=== PATIENT | female | born 1940 | race Caucasian/White ===

== ENCOUNTER 2016-10-31 11:47 | Observation (INO) | payer OTHER ==
--- NOTE | 2016-10-31 11:56 | PDOC ---
Attending Attestation - Resident Resident Name: Eric Russell - ED Attending Attestation I have performed the following: I have examined & evaluated the patient, The case was reviewed & discussed with the resident, I agree w/resident's findings & plan, Exceptions are as noted - HPI HPI: 10/31/16 12:02 The patient is a 76 year old female with a significant past medical history of hypertension who presents to the emergency department complaining of left jaw pain. It began Wednesday. She saw a physician at Urgent Care, was diagnosed with "TMJ." She was prescribed extra-strength Tylenol which has helped, though not completely. She pain is sharp, worsened with jaw activity. The daughter states that the left side of her jaw looks slightly swollen. She denies headache, visual changes. She denies fever, chills but the daughter states that she felt hot last night ( daughter in RN). She denies chest pain. 10/31/16 12:18 10/31/16 12:28 - Physicial Exam PE: 10/31/16 12:02 Vitals noted She is well appearing There is tenderness to palpation at the left TMJ There is very minimal skin erythema and warmth over trhe TMJ There is very minimal swelling at the area No forehead tenderness 10/31/16 12:20 10/31/16 12:29 10/31/16 15:10 EKG: NSR with occasional PACs, LAD, LAFB, no acute ischemic changes - Medical Decision Making 10/31/16 12:30 She is well appearing and in no acute distress Will obtain labs including CBC, CRP, ESR 10/31/16 13:[address] soft tissues neck with IV contrast to rule our abscess 10/31/16 14:27 CT preliminary reading: Parotitis Clinical impression: Parotitis Hyponatremia Will place on observation for further treatment Case discussed in detail with admitting provider including history, physical exam and ancillary studies. Admitting physician has assumed care for the patient, will follow all pending diagnostics and will complete the evaluation and treatment. Discharge Disposition - Diagnosis Parotitis, Hyponatremia - Discharge Dispostion Condition at time of disposition: Stable Admit: Yes - Referrals Referrals: Maribel Harrington [Primary Care Provider] - - Patient Instructions Additional Instructions: You were seen in the ER because of left facial pain which likely to be non-TMJ jaw pain. You can take [id number]-[id number] motrin 600mg as needed for the pain. You are also low on sodium which can be easily correctly by eating salty food for your next few meals. Do come back to the ER if the pain is worse or you develop severe tenderness in left hinduism area, vision change, fever or chill. - Post Discharge Activity
[2016-10-31 12:07] VITALS: BMI 32.1
--- NOTE | 2016-10-31 12:34 | PDOC ---
History of Present Illness - General Chief Complaint: Pain Stated Complaint: LEFT FACE PAIN Time Seen by Provider: 10/31/16 11:52 History Source: Patient, Family - History of Present Illness Initial Comments: 76 yo F with h/o HTN and chronic urinary retention 2/2 prolapsed bladder brought in to the ED by her daughter due to worsening L facial pain. The pain started last Wednesday, originates from L TMJ, radiates diffusely to the surrounding area, alleviated somewhat with tynelol extra strength, worse with jaw movement. She went to an urgent care center on Wednesday and was told she had viral infection of TMJ and sent home on the tynelol. However, the pain is becoming worse and more extensive with subjective fever, chills, and L temporal lobe headache which prompted her to come in to ED. She denies vision change, tenderness in L shinto, focal weakness, n/v, chest pain, sob. Past History - Past Medical History Allergies/Adverse Reactions: Allergies Allergy/AdvReac Type Severity Reaction Status Date / Time sulfamethoxazole AdvReac Intermediate Nausea Verified 10/31/16 12:12 [From Bactrim] trimethoprim [From Bactrim] AdvReac Intermediate Nausea Verified 10/31/16 12:12 Home Medications: Ambulatory Orders Cholecalciferol (Vitamin D3) [Vitamin D3 -] 1,000 unit PO DAILY 10/31/16 Estrogens,Conjugated [Premarin Vaginal Cream -] 1 tube VG DAILY 10/31/16 Furosemide [Lasix] 20 mg PO DAILY 10/31/16 Losartan Potassium 100 mg PO DAILY 10/31/16 Meclizine HCl 25 mg PO PRN 10/31/16 Metoprolol Succinate [Toprol Xl -] 25 mg PO DAILY 10/31/16 Multivit-Min/Iron/Folic/Lutein [Centrum Silver Women Tablet] 1 each PO DAILY Omeprazole 40 mg PO DAILY 10/31/16 Disorders: Yes (prolapsed bladder) HTN: Yes - Psycho/Social/Smoking Cessation Hx Anxiety: No Suicidal Ideation: No Smoking History: Former smoker Have you smoked in the past 12 months: No If you are a former smoker, when did you quit?: over 40 years ago Information on smoking cessation initiated: No Hx Alcohol Use: Yes (social) Drug/Substance Use Hx: No Substance Use Type: Alcohol Review of Systems - Review of Systems Able to Perform ROS?: Yes Is the patient limited Romanian proficient: No Constitutional: No: Chills, Fever, Weakness HEENTM: Yes: Other (L TMJ pain). No: Eye Pain, Blurred Vision, Tearing, Recent change in vision, Double Vision, Ear Pain, Mouth Pain Respiratory: Yes: Cough (chronic). No: Shortness of Breath Cardiac (ROS): No: Chest Pain ABD/GI: No: Nausea, Vomiting : Yes: Other (chronic retention) Musculoskeletal: No: Back Pain, Joint Pain Neurological: Yes: Headache. No: Ataxia, Dizziness Psychiatric: No: Anxiety, Depression, Mood Swings *Physical Exam - Vital Signs Last Vital Signs Temp Pulse Resp BP Pulse Ox 98 F 74 16 199/74 99 10/31/16 11:48 10/31/16 11:48 10/31/16 11:48 10/31/16 11:48 10/31/16 11:48 - Physical Exam General Appearance: No: Apparent Distress HEENT: positive: EOMI, SHANIQUA, Hearing Grossly Normal, Other (tenderness upon touch around L TMJ). negative: Photophobia, Tonsillar Exudate, Tonsillar Erythema, Sinus Tenderness Neck: positive: Supple, Tender lateral Respiratory/Chest: positive: Lungs Clear, Normal Breath Sounds Cardiovascular: positive: Regular Rhythm, Regular Rate, S1, S2. negative: Murmur Lymphatic: negative: Adenopathy, Tenderness Extremity: negative: Swelling Neurologic: positive: Fully Oriented, Alert ED Treatment Course - LABORATORY CBC & Chemistry Diagram: 10/31/16 12:45 10/31/16 12:45 Medical Decision Making - Medical Decision Making 10/31/16 12:37 76 yo F c/o L facial pain x 4 days. Likely to be TMJ pain based on clinical presentation. However, mild local warmth and swelling raise concern for temporal arteritis. Will obtain lab work including ESR and CRP. CT head if there 's abnormal lab finding. *DC/Admit/Observation/Transfer Diagnosis at time of Disposition: Jaw pain, non-TMJ - Discharge Dispostion Disposition: HOME Condition at time of disposition: Stable Admit: No - Referrals Referrals: Maribel Harrington [Primary Care Provider] - - Patient Instructions Additional Instructions: You were seen in the ER because of left facial pain which likely to be non-TMJ jaw pain. You can take pzwq-ftk-kzkacuz motrin 600mg as needed for the pain. You are also low on sodium which can be easily correctly by eating salty food for your next few meals. Do come back to the ER if the pain is worse or you develop severe tenderness in left shinto area, vision change, fever or chill.
[2016-10-31 13:00] LABS: BASOPHIL 0.3 % (0-2.0); EOSINOPHIL 0.5 % (0-4.5); MCH 31.3 pg (25.7-33.7); MCHC 34.3 g/dl (32.0-36.0); MEAN CELL VOLUME 91.2 fl (80-96); MEAN PLT VOLUME 7.9 fl (7.5-11.1); NEUTROPHILS 83.2 % (42.8-82.8); PLATELET COUNT 398 K/MM3 (134-434); WHITE BLOOD COUNT 8.8 K/mm3 (4.0-10.8)
[2016-10-31 13:15] LABS: ALBUMIN 4.2 g/dl (3.5-5.0); ALK PHOS 98 U/L (32-92); ANION GAP 11 (8-16); BILIRUBIN,TOTAL 0.7 mg/dl (0.2-1.0); CALCIUM 9.2 mg/dl (8.4-10.2); CO2 26 mmol/L (22-28); CREATININE 0.8 mg/dl (0.6-1.3); GLUCOSE,RANDOM 135 mg/dl (74-106); SGOT/AST 24 U/L (10-42); SGPT/ALT 17 U/L (10-40)
[2016-10-31] MEDS ORDERED: SODIUM CHLORIDE 1,000 ML IV SCH ×2 (13:45→15:15)
[2016-10-31] MEDS ORDERED: AMPICILLIN NA/SULBACTAM NA 1.5 GM in SODIUM CHLORIDE 100 ML IVPB ONE (14:23)
[2016-10-31] MEDS ORDERED: AMPICILLIN NA/SULBACTAM NA 1.5 GM VIAL ONE (14:30)
[2016-10-31 14:57] LABS: C-REACTIVE PROTEIN 1.6 MG/DL (0.00-0.3)
--- NOTE | 2016-10-31 17:18 | HP ---
[id number] disease s/p cortisone shot who presents with left facial/neck pain. pain started 5 days ago with difficulty chewing. over the next 2 days it became more severe with difficulty opening jaw and eating. Pain has progressed down toward upper neck. There was minimal visible swelling which was first noticed yesterday. She has not had fevers to her knowledge. ER course was notable for: (1) CT with parotitis and inflammation with platysma PAST MEDICAL HISTORY/PAST SURGICAL HISTORY: as above Social History: Smoking: no Alcohol: no Drugs: no Family History: HTN, CVAs Allergies sulfamethoxazole [From Bactrim] Adverse Reaction (Intermediate, Verified 12:12) Nausea trimethoprim [From Bactrim] Adverse Reaction (Intermediate, Verified 10/31/16 12 :12) Nausea HOME MEDICATIONS: Home Medications Medication Instructions Recorded Cholecalciferol (Vitamin D3) 1,000 unit PO DAILY 10/31/16 [Vitamin D3 -] Estrogens,Conjugated [Premarin 1 tube VG DAILY 10/31/16 Vaginal Cream -] Furosemide [Lasix] 20 mg PO DAILY 10/31/16 Losartan Potassium 100 mg PO DAILY 10/31/16 Meclizine HCl 25 mg PO PRN 10/31/16 Metoprolol Succinate [Toprol Xl -] 25 mg PO DAILY 10/31/16 Multivit-Min/Iron/Folic/Lutein 1 each PO DAILY 10/31/16 [Centrum Silver Women Tablet] Omeprazole 40 mg PO DAILY 10/31/16 REVIEW OF SYSTEMS CONSTITUTIONAL: Absent: fever, chills, diaphoresis, generalized weakness, malaise, loss of appetite, weight change HEENT: as above CARDIOVASCULAR: Absent: chest pain, syncope, palpitations, irregular heart rate, lightheadedness , peripheral edema RESPIRATORY: Absent: cough, shortness of breath, dyspnea with exertion, orthopnea, wheezing, stridor, hemoptysis GASTROINTESTINAL: Absent: abdominal pain, abdominal distension, nausea, vomiting, diarrhea, constipation, melena, hematochezia GENITOURINARY: Absent: dysuria, frequency, urgency, hesitancy, hematuria, flank pain, genital pain MUSCULOSKELETAL: Absent: myalgia, arthralgia, joint swelling, back pain, neck pain SKIN: Absent: rash, itching, pallor HEMATOLOGIC/IMMUNOLOGIC: Absent: easy bleeding, easy bruising, lymphadenopathy, frequent infections ENDOCRINE: Absent: unexplained weight gain, unexplained weight loss, heat intolerance, cold intolerance NEUROLOGIC: Absent: headache, focal weakness or paresthesias, dizziness, unsteady gait, seizure, mental status changes, bladder or bowel incontinence PSYCHIATRIC: Absent: anxiety, depression, suicidal or homicidal ideation, hallucinations. PHYSICAL EXAMINATION GENERAL: Awake, alert, and fully oriented, in no acute distress. HEAD: Normal with no signs of trauma. EYES: Pupils equal, round and reactive to light, extraocular movements intact, sclera anicteric, conjunctiva clear. No lid lag. EARS, NOSE, THROAT: Ears normal, nares patent, oropharynx clear without exudates. Moist mucous membranes. NECK: Normal range of motion, supple without lymphadenopathy, JVD, or masses. LUNGS: Breath sounds equal, clear to auscultation bilaterally. No wheezes, and no crackles. No accessory muscle use. HEART: Regular rate and rhythm, normal S1 and S2 without murmur, rub or gallop. ABDOMEN: Soft, nontender, not distended, normoactive bowel sounds, no guarding, no rebound, no masses. No hepatomegaly or splenomegaly. MUSCULOSKELETAL: Normal range of motion at all joints. No bony deformities or tenderness. No CVA tenderness. UPPER EXTREMITIES: 2+ pulses, warm, well-perfused. No cyanosis. No clubbing. No peripheral edema. LOWER EXTREMITIES: 2+ pulses, warm, well-perfused. No calf tenderness. No peripheral edema. NEUROLOGICAL: Cranial nerves II-XII intact. Normal speech. Normal gait. PSYCHIATRIC: Cooperative. Good eye contact. Appropriate mood and affect. SKIN: Warm, dry, normal turgor, no rashes or lesions noted, normal capillary refill. Laboratory Results - last 24 hr 10/31/16 10/31/16 10/31/16 12:45 12:45 12:45 WBC 8.8 RBC 4.38 Hgb 13.7 Hct 40.0 MCV 91.2 MCHC 34.3 RDW 13.0 Plt Count 398 MPV 7.9 Neutrophils % 83.2 H Lymphocytes % 9.5 Monocytes % 6.5 Eosinophils % 0.5 Basophils % 0.3 ESR 75 H Sodium 127 L Potassium 3.8 Chloride 90 L Carbon Dioxide 26 Anion Gap 11 BUN 14 Creatinine 0.8 Creat Clearance w eGFR > 60 Random Glucose 135 H Calcium 9.2 Total Bilirubin 0.7 AST 24 ALT 17 Alkaline Phosphatase 98 H C-Reactive Protein 1.6 H Total Protein 8.[address] soft tissue neck - parotid inflammation without visualized calculus or ductal dilation ASSESSMENT/PLAN: 76 yo F with bladder prolapse, arthritis, lumbar disc disease s /p cortisone shot who presents with left facial/neck pain and CT scan consistent with parotitis without abscess. Suspect supportive parotitis given degree of pain and extension of inflammation into platysma. She has been started on unasyn. Blood cultures have been sent. Parotitis: unasyn f/u BCx HTN: losartan lasix metoprolol Visit type - Emergency Visit Emergency Visit: Yes ED Registration Date: 10/31/16 Care time: The patient presented to the Emergency Department on the above date and was hospitalized for further evaluation of their emergent condition. - New Patient This patient is new to me today: Yes Date on this admission: 11/08/16 - Critical Care Critical Care patient: No
[2016-10-31] MEDS ORDERED: MECLIZINE HCL 25 MG TABLET (FP) PO SCH (17:30)
[2016-10-31] MEDS: AMPICILLIN NA/SULBACTAM NA 100 ML IVPB SCH (21:16)
[2016-10-31] MEDS ORDERED: ACETAMINOPHEN 325 MG TABLET (FP) PO PRN (23:43)
[2016-10-31] MEDS ORDERED: ACETAMINOPHEN 325 MG TABLET (FP) ONE (23:46)
[2016-11-01] MEDS: AMPICILLIN NA/SULBACTAM NA 100 ML IVPB SCH ×4 (02:27→21:46)
[2016-11-01] MEDS: LOSARTAN POTASSIUM 50 MG TABLET (FP) PO SCH (10:32)
[2016-11-01] MEDS: FUROSEMIDE 20 MG TABLET (FP) PO SCH (10:32)
[2016-11-01] MEDS: METOPROLOL SUCCINATE 25 MG TAB.SR.24H (FP) PO SCH (10:33)
[2016-11-01] MEDS: PANTOPRAZOLE 40 MG TABLET (FP) PO SCH (10:33)
[2016-11-01] MEDS: CHOLECALCIFEROL (VITAMIN D3) 1,000 UNIT TABLET (FP) PO SCH (10:33)
[2016-11-01] MEDS: MULTIVITAMINS THER W-MINERALS COMBO TABLET (FP) PO SCH (10:33)
--- NOTE | 2016-11-01 19:20 | PN ---
Physical Exam: SUBJECTIVE: Patient seen and examined at bedside. Pain is much improved and swelling is down. OBJECTIVE: Vital Signs Period Temp Pulse Resp BP Sys/Cadet Pulse Ox Last 24 Hr 98.2 F-98.7 F 58-76 18-20 135-164/61-66 98-99 GENERAL: The patient is awake, alert, and fully oriented, in no acute distress. HEAD: Normal with no signs of trauma. EYES: PERRL, extraocular movements intact, sclera anicteric, conjunctiva clear. No ptosis. ENT: Ears normal, nares patent, oropharynx clear without exudates, moist mucous membranes. NECK: Mild swelling along the left mandible; + point tenderness over the left TMJ LUNGS: Breath sounds equal, clear to auscultation bilaterally, no wheezes, no crackles, no accessory muscle use. HEART: Regular rate and rhythm, S1, S2 without murmur, rub or gallop. ABDOMEN: Soft, nontender, nondistended, normoactive bowel sounds, no guarding, no rebound, no hepatosplenomegaly, no masses. EXTREMITIES: 2+ pulses, warm, well-perfused, 1+ bilateral lower extremity edema NEUROLOGICAL: Cranial nerves II through XII grossly intact. Normal speech, gait not observed. Current Medications Generic Name Dose Route Start Last Admin Trade Name Freq PRN Reason Stop Dose Admin Acetaminophen 650 mg 10/31/16 23:43 10/31/16 23:20 Tylenol - PO 650 mg Q6H PRN Administration FEVER OR PAIN Cholecalciferol 1,000 unit 11/01/16 10:00 11/01/16 10:33 Vitamin D3 - PO 1,000 unit DAILY TESHA Administration Furosemide 20 mg 11/01/16 10:00 11/01/16 10:32 Lasix - PO 20 mg DAILY TESHA Administration Ampicillin Sodium/Sulbactam Sodium 100 mls @ 200 mls/hr 10/31/16 21:00 15:08 Unasyn 1.5 Gm (Pre-Docked) IVPB 200 mls/hr Q6H-IV TESHA Administration Losartan Potassium 100 mg 11/01/16 10:00 11/01/16 10:32 Cozaar - PO 100 mg DAILY TESHA Administration Meclizine HCl 25 mg 10/31/16 17:30 Antivert - PO PRN TESHA Metoprolol Succinate 25 mg 11/01/16 10:00 11/01/16 10:33 Toprol Xl - PO 25 mg DAILY TESHA Administration Multivitamins/Minerals 1 each 11/01/16 10:00 11/01/16 10:33 Theragran-M PO 1 each DAILY TESHA Administration Pantoprazole Sodium 40 mg 11/01/16 10:00 11/01/16 10:33 Protonix - PO 40 mg DAILY TESHA Administration ASSESSMENT/PLAN 76 year-old female with a PMH of heart failure, bladder prolapse, arthritis, and lumbar disc disease. Admitted for parotitis and hyponatremia. Acute Parotitis --CT soft tissue neck 10/31 showed left parotid gland with mildly increased density; slight glandular swelling; no calcifications, no calculus, no abscess --significant symptomatic improvement, continue Unasyn --requested ID consult Heart failure, NOS -daughter Marilee Crum, RN works at [employer], [employer] [phone]; relates patient was hospitalized last year at [facility] and was "put into" congestive heart failure with IV fluid overload; patient follows with street car mechanic Dr. Squires at [facility]; she has chronic lower extremity edema and is on low dose lasix although it is not clear that she has ever been actually diagnosed with heart failure; patient states her last echo and stress tests were about 10 years ago --stop IV fluids --continue home dose Lasix --daughter says patient will follow up with Dr. Squires Hypervolemic Hyponatremia --patient has been drinking only fluids for past 5-6 days due to jaw pain, has mild BLE edema, appears volume overloaded --stop IV fluids --continue Lasix --repeat bmp in am Bladder prolapse --no acute issues --planning on hysterectomy in next few months Arthritis Lumbar disc disease --no acute issues Fluids/Electrolytes/Nutrition Fluids: PO intake adequate Electrolytes: replete as indicated Nutrition: regular diet DVT prophylaxis: lovenox, oob, ambulation Dispo: continues to require inpatient care. Full Code. Visit type - Emergency Visit Emergency Visit: Yes ED Registration Date: 10/31/16 Care time: The patient presented to the Emergency Department on the above date and was hospitalized for further evaluation of their emergent condition. - New Patient This patient is new to me today: Yes Date on this admission: 11/01/16 - Critical Care Critical Care patient: No
[2016-11-02] MEDS: AMPICILLIN NA/SULBACTAM NA 100 ML IVPB SCH ×2 (02:52→09:49)
[2016-11-02 06:52] VITALS: BP 155/61; PULSE 55; TEMP 97.7
[2016-11-02] MEDS ORDERED: PT OWN MED DRAWER 7, Y5N ONE ×2 (08:06→09:44)
[2016-11-02 09:20] LABS: BASOPHIL 1.2 % (0-2.0); EOSINOPHIL 2.7 % (0-4.5); MCH 31.5 pg (25.7-33.7); MCHC 34.1 g/dl (32.0-36.0); MEAN CELL VOLUME 92.5 fl (80-96); MEAN PLT VOLUME 8.3 fl (7.5-11.1); NEUTROPHILS 66.9 % (42.8-82.8); PLATELET COUNT 425 K/MM3 (134-434); WHITE BLOOD COUNT 5.4 K/mm3 (4.0-10.8)
[2016-11-02 09:29] LABS: ALBUMIN 3.7 g/dl (3.5-5.0); ALK PHOS 83 U/L (32-92); ANION GAP 8 (8-16); BILIRUBIN,TOTAL 0.8 mg/dl (0.2-1.0); CALCIUM 9.7 mg/dl (8.4-10.2); CO2 27 mmol/L (22-28); CREATININE 0.8 mg/dl (0.6-1.3); GLUCOSE,RANDOM 117 mg/dl (74-106); MAGNESIUM 1.9 mg/dL (1.8-2.4); SGOT/AST 23 U/L (10-42); SGPT/ALT 17 U/L (10-40); TOT PROT 7.1 g/dl (6.4-8.3)
[2016-11-02] MEDS: MULTIVITAMINS THER W-MINERALS COMBO TABLET (FP) PO SCH (09:49)
[2016-11-02] MEDS: METOPROLOL SUCCINATE 25 MG TAB.SR.24H (FP) PO SCH (09:49)
[2016-11-02] MEDS: FUROSEMIDE 20 MG TABLET (FP) PO SCH (09:49)
[2016-11-02] MEDS: CHOLECALCIFEROL (VITAMIN D3) 1,000 UNIT TABLET (FP) PO SCH (09:49)
[2016-11-02] MEDS: LOSARTAN POTASSIUM 50 MG TABLET (FP) PO SCH (09:56)
[2016-11-02] MEDS: PANTOPRAZOLE 40 MG TABLET (FP) PO SCH (09:57)
[2016-11-02] MEDS ORDERED: ENOXAPARIN NA (PORCINE) 40 MG/0.4 ML DISP.SYRIN SQ SCH (10:00)
--- NOTE | 2016-11-02 10:35 | PN ---
Progress Note (short form) - Note Progress Note: ID Consult dictated Acute suppurative L parotitis Clinically improved on Unasyn Substitute Augmentin 875mg po bid x 7days
--- NOTE | 2016-11-02 11:07 | DS ---
Physical Exam: SUBJECTIVE: Patient seen and examined, patient reports feeling well, swelling to face has resolved, denies any tactile fever, tolerating meals. OBJECTIVE:76 yo F with bladder prolapse, arthritis, lumbar disc disease s/p cortisone shot who presents with left facial/neck pain. pain started 5 days ago with difficulty chewing. over the next 2 days it became more severe with difficulty opening jaw and eating. Pain has progressed down toward upper neck. There was minimal visible swelling which was first noticed yesterday. She has not had fevers to her knowledge. ER course was notable for: (1) CT with parotitis and inflammation with platysma Vital Signs Period Temp Pulse Resp BP Sys/Cadet Pulse Ox Last 24 Hr 97.7 F-98.7 F 55-58 18-20 149-155/61-66 99-99 PHYSICAL EXAM GENERAL: The patient is awake, alert, and fully oriented, in no acute distress. HEAD: Normal with no signs of trauma.facial symmetry noted, no swelling noted EYES: PERRL, extraocular movements intact, sclera anicteric, conjunctiva clear. ENT: Ears normal, nares patent, oropharynx clear without exudates, moist mucous membranes. NECK: Trachea midline, full range of motion, supple. LUNGS: Breath sounds equal, clear to auscultation bilaterally, no wheezes, no crackles, no accessory muscle use. HEART: Regular rate and rhythm, S1, S2 without murmur, rub or gallop. ABDOMEN: Soft, nontender, nondistended, normoactive bowel sounds, no guarding, no rebound, no hepatosplenomegaly, no masses. EXTREMITIES: 2+ pulses, warm, well-perfused, no edema. NEUROLOGICAL: Cranial nerves II through XII grossly intact. Normal speech, gait not observed. PSYCH: Normal mood, normal affect. SKIN: Warm, dry, normal turgor, no rashes or lesions noted. LABS Laboratory Results - last 24 hr 11/02/16 11/02/16 07:00 08:00 WBC 5.4 D RBC 4.19 Hgb 13.2 Hct 38.8 MCV 92.5 MCHC 34.1 RDW 13.0 Plt Count 425 MPV 8.3 Neutrophils % 66.9 Lymphocytes % 20.8 D Monocytes % 8.4 Eosinophils % 2.7 D Basophils % 1.2 D Sodium 134 L Potassium 4.5 Chloride 99 Carbon Dioxide 27 Anion Gap 8 BUN 10 D Creatinine 0.8 Creat Clearance w eGFR > 60 Random Glucose 117 H Calcium 9.7 Magnesium 1.9 Total Bilirubin 0.8 AST 23 ALT 17 Alkaline Phosphatase 83 Total Protein 7.1 Albumin 3.7 Microbiology 10/31/16 12:45 Blood - Peripheral Venous Blood Culture - Preliminary NO GROWTH OBTAINED AFTER 24 HOURS, INCUBATION TO CONTINUE FOR 4 DAYS. 10/31/16 12:50 Blood - Peripheral Venous Blood Culture - Preliminary NO GROWTH OBTAINED AFTER 24 HOURS, INCUBATION TO CONTINUE FOR 4 DAYS. IMAGING -CT soft tissue neck 10/31 showed left parotid gland with mildly increased density; slight glandular swelling; no calcifications, no calculus, no abscess HOSPITAL COURSE: patient was admitted to the emergency department observation for parotitis and hyponatremia. Patient was treated with 48 hours of Unasyn. Swelling resolved. infectious disease physician, Dr. Vallejo was consulted and followed. Patient has a past medical history of CHF. Patient remains euvolemic throughout hospitalization. Home dose Lasix was continued. patient was noted to be hyponatremic upon arrival from the emergency department. IV fluids was discontinued upon admission. Lasix was restarted. PLAN: - discharge home on Augmentin - Follow up with PCP within 2 days - return Precautions reviewed i.e. chest pain shortness of breath fever Date of Admission:10/31/16 Date of Discharge: 11/02/16 Minutes to complete discharge: 45 Discharge Summary Reason For Visit: HYPONATREMIA Current Active Problems Hyponatremia (Acute) Parotitis (Acute) Condition: Stable - Instructions Diet, Activity, Other Instructions: resume regular diet Continue Augmentin twice a day for 7 days please take Augmentin with food Please take probiotics while you're taking Augmentin Continue all medications as prescribed Return to the emergency department immediately with ANY new, persistent or worsening symptoms. You MUST call and follow up with your doctor tomorrow. Please make sure your doctor reviews the results of your hospital stay. Referrals: Maribel Harrington [Primary Care Provider] - - Home Medications Comprehensive Discharge Medication List: Ambulatory Orders Cholecalciferol (Vitamin D3) [Vitamin D3 -] 1,000 unit PO DAILY 10/31/16 Estrogens,Conjugated [Premarin Vaginal Cream -] 1 tube VG DAILY 10/31/16 Furosemide [Lasix] 20 mg PO DAILY 10/31/16 Losartan Potassium 100 mg PO DAILY 10/31/16 Meclizine HCl 25 mg PO PRN 10/31/16 Metoprolol Succinate [Toprol Xl -] 25 mg PO DAILY 10/31/16 Multivit-Min/Iron/Folic/Lutein [Centrum Silver Women Tablet] 1 each PO DAILY Omeprazole 40 mg PO DAILY 10/31/16 This patient is new to me today: Yes Date on this admission: 11/02/16 Emergency Visit: Yes ED Registration Date: 10/31/16 Care time: The patient presented to the Emergency Department on the above date and was hospitalized for further evaluation of their emergent condition. Critical Care patient: No - Discharge Referral Referred to [facility] No
--- NOTE | 2016-11-02 13:02 | CONS ---
DATE OF CONSULTATION: HISTORY: This is a 76-year-old female evaluated for acute left parotitis. The patient reports developing left jaw pain on Wednesday, October 26, 2016. It began progressively worse to the point where she had difficulty chewing secondary to pain. She was seen at an urgent care center on October 28. She was diagnosed with TMJ. She was treated supportively. She continued to have increasing jaw pain and now was associated with fever and chills. She presented to the emergency room where a CAT scan showed left parotid inflammation. She was treated with IV Unasyn for acute suppurative left parotitis. She has clinically improved on the antibiotic therapy with decreased left facial pain and swelling, decreased pain with chewing. She has been afebrile, and white blood cell count is normal. PAST MEDICAL HISTORY: Positive for hypertension, history of bladder prolapse. ALLERGIES: SULFA. SOCIAL HISTORY: Live at home. Negative tobacco and alcohol history. REVIEW OF SYSTEMS: Neurologic: No loss of consciousness, seizure activity, or focal weakness. Cardiac: Negative chest pain or palpitations. Respiratory: Negative cough or sputum production. Gastrointestinal: Negative vomiting or diarrhea. Genitourinary: Negative for urinary tract infection. LABORATORY DATA: White count 8.8, hematocrit 40, platelet count 398. BUN 14, creatinine 0.8. C-reactive protein 1.6, ESR 75. PHYSICAL EXAMINATION: General: She is awake and alert. She is not acutely toxic appearing. Vital Signs: Temperature 97.7, blood pressure 155/61, pulse 55 and regular, respirations 18 per minute. HEENT: Sclerae anicteric. There is tender swelling present over the left parotid gland. There is no erythema or warmth. No expressible pus from stents in this duct. Neck: Otherwise supple without other adenopathy present. Heart: S1, S2. Lungs: Clear. Abdomen: Soft and nontender. Extremities: Negative for edema. IMPRESSION: Acute suppurative left parotitis. Patient clinically improved on Unasyn. Advised switching to Augmentin 875 mg p.o. b.i.d. for 7 days in conjunction with warm compresses and analgesics. Outpatient follow up. Thank you for the kind referral. DIANA XIE M.D. [id number]
--- NOTE | 2016-11-03 09:58 | EKG ---
Test Reason : Blood Pressure : / mmHG Vent. Rate : 063 BPM Atrial Rate : 063 BPM P-R Int : 206 ms QRS Dur : 096 ms QT Int : 420 ms P-R-T Axes : 037 -25 021 degrees QTc Int : 429 ms SINUS RHYTHM WITH PREMATURE SUPRAVENTRICULAR COMPLEXES minimal rvcd NO PREVIOUS ECGS AVAILABLE Confirmed by MD GONZALO, FRANK ([id number]) on 11/03/2016 9:58:12 AM Referred By: MARINO Confirmed By:FRANK SÁNCHEZ MD
== END 2016-11-02 13:54 | disposition home health service (06) ==
LOC: FER 11:47 → FM/S 16:48
PROVIDERS: ADMIT Internal Medicine; ATTEND Nurse Practitioner Family
PROC: 3E03329 Introduction of Other Anti-infective into Peripheral Vein, Percutaneous Approach (ICD-10-PCS; principal; 2016-10-31)
PROC: 3E0337Z Introduction of Electrolytic and Water Balance Substance into Peripheral Vein, Percutaneous Approach (ICD-10-PCS; 2016-10-31)
PROC: 3E013GC Introduction of Other Therapeutic Substance into Subcutaneous Tissue, Percutaneous Approach (ICD-10-PCS; 2016-10-31)
DX: E87.1 Hypo-osmolality and hyponatremia (principal); K11.21 Acute sialoadenitis; I10 Essential (primary) hypertension; Z87.891 Personal history of nicotine dependence; R68.84 Jaw pain; N81.10 Cystocele, unspecified; I50.9 Heart failure, unspecified; E87.79 Other fluid overload; M51.36 Other intervertebral disc degeneration, lumbar region; M19.90 Unspecified osteoarthritis, unspecified site
CPT/HCPCS: 36415; 70491-TC; 80053; 83735; 85025; 85651; 86140; 87040; 93005; 99283-25; G0378

== ENCOUNTER 2016-12-30 15:48 | Emergency (ER) | payer OTHER ==
[2016-12-30 16:04] VITALS: BP 165/79; PULSE 76; TEMP 98.7; BMI 32.1
--- NOTE | 2016-12-30 16:22 | PDOC ---
History of Present Illness - General Chief Complaint: Pain, Acute Stated Complaint: RIGHT RIB PAIN S/P FALL 2 DAYS AGO Time Seen by Provider: 12/30/16 15:53 - History of Present Illness Initial Comments: 12/30/16 16:17 Chief complaint: Pain right shoulder and right rib cage History of present illness: Tripped and fell on Wednesday, striking shoulder and rib cage. Persistent pain, especially in the shoulder, with inability to abduct the arm. Review of systems: Denies distal numbness tingling pain or weakness in the arm or hand. Denies shortness of breath, cough, or restriction of breathing. Denies abdominal pain, nausea, vomiting, diarrhea, visual or focal neurologic symptoms , unsteadiness of gait. Denies pain or injury to the head neck abdomen pelvis spine or other extremities Past medical history: High blood pressure, GERD, atrophic vaginitis, chronic vertigo Medications: Losartan, metoprolol, omeprazole, furosemide, meclizine, and conjugated estrogen cream. Social history: Active, no significant disability, no tobacco alcohol or nonprescription drugs, stable home and family Family history: Reviewed and noncontributory Physical exam: Alert and oriented 3, well-developed well-nourished no acute distress cheerful and cooperative Afebrile, vital signs normal Head atraumatic. PERRLA, fundi benign, ENT clear Neck without tenderness or deformity, full range of motion without pain Lungs clear to P&A, full breath sounds bilaterally, 4+ without splinting. Chest wall without deformity but with mild to moderate tenderness over the lower right lateral rib cage CV S1-S2 normal without murmur rub or gallop pulses full and symmetric no JVD or edema Abdomen soft nontender without mass or organomegaly. No CVAT Extremities no CCE. There is however tenderness over the deltoid area of the shoulder with limited abduction to less than 30. There is no deformity of the shoulder. There are no distal sensory or motor deficits. Pulses are full and capillary refill intact Neurological C2 to 12 intact. No focal sensory or motor deficits. Strength full and symmetric, except for abduction of the right shoulder. Gait stable and unimpaired Impression: Rotator cuff contusion/tear rule out humeral fracture, contusion ribs rule out rib fracture, pulmonary contusion. Plan: X-ray and further medical management depending on results. Past History - Past Medical History Allergies/Adverse Reactions: Allergies Allergy/AdvReac Type Severity Reaction Status Date / Time sulfamethoxazole AdvReac Intermediate Nausea Verified 12/30/16 15:53 [From Bactrim] trimethoprim [From Bactrim] AdvReac Intermediate Nausea Verified 12/30/16 15:53 Home Medications: Ambulatory Orders Cholecalciferol (Vitamin D3) [Vitamin D3 -] 1,000 unit PO DAILY 10/31/16 Estrogens,Conjugated [Premarin Vaginal Cream -] 1 tube VG DAILY 10/31/16 Furosemide [Lasix] 20 mg PO DAILY 10/31/16 Losartan Potassium 100 mg PO DAILY 10/31/16 Meclizine HCl 25 mg PO PRN 10/31/16 Metoprolol Succinate [Toprol XL -] 25 mg PO DAILY 10/31/16 Multivit-Min/Iron/Folic/Lutein [Centrum Silver Women Tablet] 1 each PO DAILY Omeprazole 40 mg PO DAILY 10/31/16 Acetaminophen [Tylenol .Regular Strength -] 650 mg PO Q6H PRN #0 tablet Ketoconazole 2% Cream [Nizoral 2% Cream -] 1 applic TP BID #1 tube 12/30/16 Disorders: Yes (prolapsed bladder) HTN: Yes - Psycho/Social/Smoking Cessation Hx Anxiety: No Suicidal Ideation: No Smoking History: Former smoker Have you smoked in the past 12 months: No If you are a former smoker, when did you quit?: over 40 years ago Information on smoking cessation initiated: No Hx Alcohol Use: Yes (SOCIAL) Drug/Substance Use Hx: No Substance Use Type: Alcohol Hx Substance Use Treatment: No *Physical Exam - Vital Signs Last Vital Signs Temp Pulse Resp BP Pulse Ox 98.7 F 76 20 165/79 97 12/30/16 15:50 12/30/16 15:50 12/30/16 15:50 12/30/16 15:50 12/30/16 15:50 ED Treatment Course - RADIOLOGY Radiology Studies Ordered: Category Date Time Status RIBS RIGHT SIDE [RAD] Stat Radiology 12/30/16 15:58 Ordered SHOULDER-RIGHT [RAD] Stat Radiology 12/30/16 15:58 Ordered Medical Decision Making - Medical Decision Making 12/30/16 17:04 X-ray of the shoulder and ribs negative for fracture. No shoulder dislocation. Lung orozco are clear with no consolidation, effusion, or pneumothorax. Sling for the right arm with early mobilization as directed. Orthopedic consult and physical therapy recommended within 1 week. Ice and Tylenol. Patient fully ambulatory and more comfortable upon discharge to follow-up as directed. *DC/Admit/Observation/Transfer Diagnosis at time of Disposition: Rotator cuff injury Qualifiers: Encounter type: initial encounter Laterality: right Qualified Code(s): S46.001A - Unspecified injury of muscle(s) and tendon(s) of the rotator cuff of right shoulder, initial encounter Contusion of rib on right side Qualifiers: Encounter type: initial encounter Qualified Code(s): S20.211A - Contusion of right front wall of thorax, initial encounter - Discharge Dispostion Disposition: HOME Condition at time of disposition: Stable Admit: No - Prescriptions Prescriptions: Ketoconazole 2% Cream [Nizoral 2% Cream -] 1 applic TP BID #1 tube - Patient Instructions Printed Discharge Instructions: How to Use a Sling, DI for Rib Contusion, DI for Rotator Cuff Injury Additional Instructions: Use ice to the rib cage and shoulder Rest shoulder and use sling for 4-5 days, then begin gentle range of motion stretching as demonstrated See orthopedist within 1 week for further evaluation and to obtain prescription for physical therapy. Physical therapy beginning early is essential to avoid disability from frozen shoulder in the future. Tylenol for pain
== END 2016-12-30 17:12 | disposition home or self-care (01) ==
LOC: FER 15:48
DX: S46.001A Unspecified injury of muscle(s) and tendon(s) of the rotator cuff of right shoulder, initial encounter (principal); S20.211A Contusion of right front wall of thorax, initial encounter; W18.39XA Other fall on same level, initial encounter; Y93.9 Activity, unspecified; Y92.9 Unspecified place or not applicable; I10 Essential (primary) hypertension; Z87.891 Personal history of nicotine dependence
CPT/HCPCS: 71101-TC-RT; 73030-TC-RT; 99283-25

== ENCOUNTER 2018-11-01 16:49 | Inpatient (IN) | payer OTHER ==
[2018-11-01 16:54] VITALS: BMI 25.8
[2018-11-01] MEDS ORDERED: MECLIZINE HCL 25 MG TABLET (FP) PO ONE (19:28)
[2018-11-01] MEDS ORDERED: MECLIZINE HCL 25 MG TABLET (FP) ONE (19:40)
[2018-11-01] MEDS ORDERED: diazePAM 2 MG TABLET PO ONE (20:38)
--- NOTE | 2018-11-01 21:24 | CON.NEURO ---
Consult Consult Specialty:: NEUROLOGY-ALFREDA JENSEN Reason for Consultation:: Vertigo - History of Present Illness History of Present Illness: 11/01/18 19:18 The patient is a 78 year old female with a past medical history of hypertension , GERD, and chronic vertigo who presents to the emergency department sent by ENT provider for evaluation of elevated blood pressure and nystagmus. Patient is accompanied with her daughter who is a ED nurse at [facility] [facility] [employer]. As per daughter at bedside, patient had onset of unsteady gait, persistent nystagmus, mild confusion, and severe dizziness with nausea and vomiting since 1pm. Daughter states patient did not receive dose of Meclizine prior to ENT evaluation. Per daughter, Dr. Deal prompted the patient to visit the ED for further evaluation. \\-She reports episodic vertigo x years, this afternoon began having persistent vertigo as above. + ataxia toady"I am wobbly". - Alcohol/Substance Use Hx Alcohol Use: No - Smoking History Smoking history: Never smoked Have you smoked in the past 12 months: No If you are a former smoker, when did you quit?: over 40 years ago Home Medications - Allergies Allergies/Adverse Reactions: Allergies Allergy/AdvReac Type Severity Reaction Status Date / Time sulfamethoxazole AdvReac Intermediate Nausea Verified 11/01/18 18:54 [From Bactrim] trimethoprim [From Bactrim] AdvReac Intermediate Nausea Verified 11/01/18 18:54 - Home Medications Home Medications: Ambulatory Orders Cholecalciferol (Vitamin D3) [Vitamin D3 -] 1,000 unit PO DAILY 10/31/16 Furosemide [Lasix] 20 mg PO DAILY 10/31/16 Losartan Potassium 100 mg PO DAILY 10/31/16 Meclizine HCl 25 mg PO PRN 10/31/16 Metoprolol Succinate [Toprol XL -] 25 mg PO DAILY 10/31/16 Multivit-Min/Iron/Folic/Lutein [Centrum Silver Women Tablet] 1 each PO DAILY Omeprazole 40 mg PO DAILY 10/31/16 Acetaminophen [Tylenol .Regular Strength -] 650 mg PO Q6H PRN #0 tablet Vitamin C - 500 mg PO DAILY 11/01/18 Physical Exam-Neuro Vital Signs: Vital Signs Temperature 97.6 F 11/01/18 16:51 Pulse Rate 58 L 11/01/18 16:51 Respiratory Rate 16 11/01/18 16:51 Blood Pressure 178/77 H 11/01/18 18:55 O2 Sat by Pulse Oximetry (%) 97 11/01/18 16:51 - Neuro Exam Level Of Consciousness: Yes: Alert, Oriented to Person, Oriented to Place Eyes: Yes: PERRL Speech: WNL Mini Mental Exam: nl Cranial Nerves II-XII Intact: No (+ nystagmus-in midline rotatory, direction changing, upon left gaze no nystagmus, upon right gaze right beating (fast phase to right) persistent nyst.) DTR's: 2+ Left Bicep, 2+ Right Bicep, 2+ Left Tricep, 2+ Right Tricep, 2+ Left Brachioradialis, 2+ Right Brachioradialis, 2+ Left Achilles, 2+ Right Achilles Babinski: Absent Response to light touch: Normal Response to pain prick: Normal Response to temperature: Normal Response to vibration: Normal Motor Strength: 5/5: Left Arm, Right Arm, Left Leg, Right Leg Gait: Other (Unsteady due to vertigo) Imaging - Results Cat Scan: Report Reviewed (CT head reported without acute changes) Assessment/Plan Pt. with hx. of vertigo, now with persistent vertigo/nystagmus. It is still likely BPPV but persistence of nystagmus and ataxia compells us to r/o brain stem ischemic event(she has had similar nystagmius in 08/30 as per daughter). Suggest: MRI brain Valium 2mg po x1 now to target peripheral vertigo. Further management after above. Thank you, Concepcion Wooten MD
[2018-11-01 22:13] LABS: BASO % 0.6 % (0-2.0); EOS % 0.1 % (0-4.5); HEMATOCRIT 38.4 % (32.4-45.2); HEMOGLOBIN 13.1 GM/dL (10.7-15.3); LYMPH % 13.1 % (8-40); MCH 31.9 pg (25.7-33.7); MCHC 34.1 g/dl (32.0-36.0); MEAN CELL VOLUME 93.7 fl (80-96); MEAN PLT VOLUME 7.8 fl (7.5-11.1); MONO % 3.9 % (3.8-10.2); NEUT % 82.3 % (42.8-82.8); PLATELET COUNT 286 K/MM3 (134-434); RBC 4.09 M/mm3 (3.60-5.2); RDW 13.5 % (11.6-15.6); WHITE BLOOD COUNT 6.3 K/mm3 (4.0-10.0)
[2018-11-01 23:13] LABS: ALBUMIN 3.7 g/dl (3.4-5.0); ALK PHOS 117 U/L (45-117); ANION GAP 9 MMOL/L (8-16); BILIRUBIN,TOTAL 0.5 mg/dL (0.2-1); BLOOD UREA NITROGEN 15 mg/dL (7-18); CALCIUM 9.3 mg/dL (8.5-10.1); CHLORIDE 93 mmol/L (98-107); CO2 24 mmol/L (21-32); CREATININE 0.6 mg/dL (0.55-1.3); GLUCOSE,RANDOM 120 mg/dL (74-106); POTASSIUM 4.4 mmol/L (3.5-5.1); SGOT/AST 20 U/L (15-37); SGPT/ALT 17 U/L (13-61); SODIUM 126 mmol/L (136-145); TOT PROT 7.6 g/dl (6.4-8.2)
--- NOTE | 2018-11-01 23:46 | PN ---
Teaching Attending Note Name of Resident: Amish Echeverria ATTENDING PHYSICIAN STATEMENT I saw and evaluated the patient. I reviewed the resident's note and discussed the case with the resident. I agree with the resident's findings and plan as documented. SUBJECTIVE: Seen and examined; please refer to resident note for further historical information. Briefly, this is a 78 y/o female with PMH significant for HTN, GERD, Chronic vertigo on home meclezine. She presents with her daughter at the behest of her ENT provider when she was noted to have elevated BP and nystagmus. She has a a CC of persistent nystagymus with unsteady gait and severe dizziness; she had some associated confusion. Nausea is noted and she did vomit; this started at ~1PM. She has had vertigo for years but it has never been persistent and she has never been associated with ataxia, though a somewhat similar event did spontaneously resolve several months ago. BP noted to be in the 170s in the ER. 10 sys ROS done and negative aside from HPI PMH, PSH, SH, FH reviewed Home Medications Medication Instructions Recorded Cholecalciferol (Vitamin D3) 1,000 unit PO DAILY 10/31/16 [Vitamin D3 -] Furosemide [Lasix] 20 mg PO DAILY 10/31/16 Losartan Potassium 100 mg PO DAILY 10/31/16 Meclizine HCl 25 mg PO PRN 10/31/16 Metoprolol Succinate [Toprol XL -] 25 mg PO DAILY 10/31/16 Multivit-Min/Iron/Folic/Lutein 1 each PO DAILY 10/31/16 [Centrum Silver Women Tablet] Omeprazole 40 mg PO DAILY 10/31/16 Acetaminophen [Tylenol .Regular 650 mg PO Q6H PRN #0 tablet 11/02/16 Strength -] Vitamin C - 500 mg PO DAILY 11/01/18 OBJECTIVE: VS, labs, imaging reviewed NAD, AAO, resting comfortably in bed NC AT EOMI PERRLA RRR s1/2 no mgr Lungs CTAB, w/ sym exp NT ND +BS Noted to have unsteady gait, normal strength in all extremities, normal reflexes , +nystagmus with fast phase to right Normal mood, appropriate behavior CT head shows MRI read pending ASSESSMENT AND PLAN: Patient sent in from ENT office with elevated BP and persistent nystagmus with ataxia 1) Persistent nystagmus with ataxia -Neuro exam noted; consultation from Dr. Wooten reviewed; appreciate expert opinion. -Place on telemetry with neuro checks and seizure precautions. Want to r/o any brainstem ischemia. MRI of brain read pending. CT reviewed. -Followup echo, carotid dopplers, B12/thiamine/ESR/CRP/TSH/Lipids/A1c -Continue home meclizine -Valium 2mg PO x1 for peripheral vertigo per neurology; will assess for response 2) Elevated BP -In the setting of possible brainstem ischemia will allow to trend in the upper 170s as is for now in case there is a potential CVA. Should the degree of uncontrolled BP progress or she develop typical hypertensive sx will use PRN antihypertensives. Will review home medications and continue appropriate tx in the AM. 3) Hx GERD -Asx at this juncture; continue PPI 4) Hx HTN -Continue toprol xl, losartan 5) Hyponatremia -Checking osm's; BID BMP; followup serum Na. Careful not to overcorrect.
--- NOTE | 2018-11-02 01:37 | PDOC ---
Documentation entered by Everton Menezes SCRIBE, acting as scribe for Ammy Vidal MD. Ammy Vidal MD: This documentation has been prepared by the tobyeRiri Renju, SCRIBE, under my direction and personally reviewed by me in its entirety. I confirm that the documentation accurately reflects all work, treatment, procedures, and medical decision making performed by me. History of Present Illness - General Chief Complaint: Lightheaded Stated Complaint: DIZZINESS History Source: Patient, Family Exam Limitations: No Limitations - History of Present Illness Initial Comments: 11/01/18 19:18 The patient is a 78 year old female with a past medical history of hypertension , GERD, and chronic vertigo who presents to the emergency department sent by ENT provider for evaluation of elevated blood pressure and nystagmus. Patient is accompanied with her daughter. As per daughter at bedside, patient had onset of unsteady gait, persistent nystagmus, mild confusion, and severe dizziness with nausea and vomiting since 1pm. Daughter states patient did not receive dose of Meclizine prior to ENT evaluation. Per daughter, Dr. Deal prompted the patient to visit the ED for further evaluation. Patient denies chest pain, shortness of breath, fevers, chills, diarrhea, and constipation. Allergies: Sulfamethoxazole, trimethoprim Social History: No reported alcohol, cigarette, or drug use. PCP: Dr. Harrington tPA Exclusion checklist 3-4.5h - Time Elapsed Date last known well: 11/01/18 Time last known well: 13:00 Elaspsed time: Day(s) and 11 Hour(s) and 21 Minutes - Thrombolytic Therapy Candidate Is patient eligible for thrombolytic therapy: No - Exclusion Criteria 3-4.5 hr SBP greater than 185 or DBP greater than 110mmHg despite tx: No Recent IC/spinal surgery,head trauma or stroke<3mos.: No Hx IC hemorrhage, IC neoplasm, AV malformation or aneurysm: No Active internal bleeding: No Blding diathesis(low plt ct, inc PTT,INR>1.7 or use of NOAC): No Symptoms suggest subarachnoid hemorrhage: No CT demonstrates multilobar infarct(>1/3 cerebral hemiphere): No Arterial puncture at noncompressible site in previous 7 days: No Blood glucose concentration less than 50mg/dL (2.7mmol/L): No - Relative Exclusion Criteria 3-4.5 hr Life expectancy <1 yr or severe co-morbid illness: No : No Patient/family refused: No Rapid improvement: Yes Stroke severity too mild: Yes Recent acute [place] (w/in previous 3 months): No Seizure at onset with postictal residual neuro impairments: No Major surgery or serious trauma w/in previous 14 days: No Recent GI or hemorrhage (w/in previous 21 days): No - Add'l Relative Exclusion 3-4.5 hr Age > 80: No Hx of both diabetes AND prior ischemic stroke: No Taking an oral anticoagulant regardless of INR: No NIHSS >25: No - Ineligibility reason(s) Reasons No tPA given: See reason(s) noted above (severe vertigo leadig to ataxia ,no gross focal deficits/ct sach head negative) NIH Stroke Scale - Last Known Well Date/Time & Onset Date Last Known Well: 11/01/18 Time Last Known Well: 13:00 - Initial Evaluation Level of consciousness: Alert Ask patient the month and their age: Answers both correctly Ask patient to open & close eyes; make fist and let go: Obeys both correctly Best gaze (horizontal eye movement): Normal Visual field testing: No visual field loss Facial paresis (Show teeth/raise eyebrows/close eyes tight): Normal symmetrical movement Motor Function: Left Arm: Normal Motor Function: Right Arm: Normal (extends arm 90 (or 45) degrees for 10 seconds without drift Motor Function: Left Leg: Normal (extends leg 30 degrees for 5 seconds without drift) Motor Function: Right Leg: Normal (extends leg 30 degrees for 5 seconds without drift) Limb Ataxia: No ataxia (pt had severe nystagmus,vertigo and ataxia) Sensory(Use pinprick test arms,legs,trunk,face/side to side): Normal Best language (Describe picture, name items, read sentences): No Aphasia Dysarthria (read several words): Normal articulation Extinction and Inattention: No abnormality - Total Score NIH Stroke Scale Score: 0 Past History - Past Medical History Allergies/Adverse Reactions: Allergies Allergy/AdvReac Type Severity Reaction Status Date / Time sulfamethoxazole AdvReac Intermediate Nausea Verified 11/01/18 18:54 [From Bactrim] trimethoprim [From Bactrim] AdvReac Intermediate Nausea Verified 11/01/18 18:54 Home Medications: Ambulatory Orders Cholecalciferol (Vitamin D3) [Vitamin D3 -] 1,000 unit PO DAILY 10/31/16 Furosemide [Lasix] 20 mg PO DAILY 10/31/16 Losartan Potassium 100 mg PO DAILY 10/31/16 Meclizine HCl 25 mg PO PRN 10/31/16 Metoprolol Succinate [Toprol XL -] 25 mg PO DAILY 10/31/16 Multivit-Min/Iron/Folic/Lutein [Centrum Silver Women Tablet] 1 each PO DAILY Omeprazole 40 mg PO DAILY 10/31/16 Acetaminophen [Tylenol .Regular Strength -] 650 mg PO Q6H PRN #0 tablet Vitamin C - 500 mg PO DAILY 11/01/18 COPD: No Disorders: Yes (prolapsed bladder) HTN: Yes - Surgical History Cardiac Surgery: No - Immunization History Immunization Up to Date: No - Suicide/Smoking/Psychosocial Hx Smoking History: Never smoked Have you smoked in the past 12 months: No If you are a former smoker, when did you quit?: over 40 years ago Information on smoking cessation initiated: No Hx Alcohol Use: No Drug/Substance Use Hx: No Substance Use Type: Alcohol Hx Substance Use Treatment: No Review of Systems - Review of Systems Able to Perform ROS?: Yes Comments:: 11/01/18 19:19 CONSTITUTIONAL: Absent: fever, chills, diaphoresis, generalized weakness, malaise, loss of appetite HEENT: (+)Nystagmus. Absent: rhinorrhea, nasal congestion, throat pain, throat swelling, difficulty swallowing, mouth swelling, ear pain, eye pain, visual Changes CARDIOVASCULAR: Absent: chest pain, syncope, palpitations, irregular heart rate, lightheadedness , peripheral edema RESPIRATORY: Absent: cough, shortness of breath, dyspnea with exertion, orthopnea, wheezing, stridor, hemoptysis GASTROINTESTINAL: (+)Nausea. (+)Vomiting. Absent: abdominal pain, abdominal distension, diarrhea, constipation, melena, hematochezia GENITOURINARY: Absent: dysuria, frequency, urgency, hesitancy, hematuria, flank pain, genital pain MUSCULOSKELETAL: Absent: myalgia, arthralgia, joint swelling SKIN: Absent: rash, itching, pallor HEMATOLOGIC/IMMUNOLOGIC: Absent: easy bleeding, easy bruising, lymphadenopathy, frequent infections ENDOCRINE: Absent: unexplained weight gain, unexplained weight loss, heat intolerance, cold intolerance NEUROLOGIC: (+)unsteady gait. (+)Dizziness. Absent: headache, focal weakness or paresthesias, seizure, bladder or bowel incontinence PSYCHIATRIC: Absent: anxiety, depression, suicidal or homicidal ideation, hallucinations. *Physical Exam - Vital Signs Last Vital Signs Temp Pulse Resp BP Pulse Ox 97.6 F 58 L 16 179/69 H 97 11/01/18 16:51 11/01/18 16:51 11/01/18 16:51 11/01/18 16:51 11/01/18 16:51 - Physical Exam Comments: 11/01/18 20:35 GENERAL: Slender, well nourished. Awake, alert, and conversive. No acute distress. HEENT: (+)severe horizontal nystagmus, no rotary movement. Normocephalic, atraumatic. No conjunctival pallor. Sclera are non-icteric. Moist mucous membranes. NECK: Supple. Full ROM. No JVD. Carotid pulses 2+ and symmetric, without bruits. CARDIOVASCULAR: Regular rate and rhythm. No murmurs, rubs, or gallops. Distal pulses are 2+ and symmetric. PULMONARY: No evidence of respiratory distress. Lungs clear to auscultation bilaterally. No wheezing, rales or rhonchi. ABDOMINAL: Soft. Non-tender. Non-distended. No rebound or guarding. No organomegaly. Normoactive bowel sounds. MUSCULOSKELETAL Normal range of motion at all joints. No bony deformities or tenderness. No CVA tenderness. EXTREMITIES: No cyanosis. No clubbing. No edema. No calf tenderness. SKIN: Warm and dry. Normal capillary refill. No rashes. No jaundice. NEUROLOGICAL: Alert, awake, appropriate. Cranial nerves 2-12 intact. No deficits to light touch and temperature in face, upper extremities and lower extremities. 5/5 strength bilaterally. No motor deficits in the in face, upper extremities and lower extremities. Normoreflexic in the upper and lower extremities. Normal speech. Toes are down-going bilaterally. Gait is normal without ataxia. No drift. PSYCHIATRIC: Cooperative. Good eye contact. Appropriate mood and affect. ED Treatment Course - LABORATORY CBC & Chemistry Diagram: 11/01/18 22:00 11/01/18 22:00 - ADDITIONAL ORDERS Additional order review: Laboratory Results 11/01/18 11/01/18 22:00 22:00 Sodium 126 L Potassium 4.4 Chloride 93 L Carbon Dioxide 24 Anion Gap 9 BUN 15 Creatinine 0.6 Creat Clearance w eGFR 96.44 Random Glucose 120 H Calcium 9.3 Total Bilirubin 0.5 AST 20 ALT 17 Alkaline Phosphatase 117 Troponin I < 0.02 Total Protein 7.6 Albumin 3.7 11/01/18 22:00 RBC 4.09 MCV 93.7 MCHC 34.1 RDW 13.5 MPV 7.8 Neutrophils % 82.3 Lymphocytes % 13.1 Monocytes % 3.9 Eosinophils % 0.1 Basophils % 0.6 - RADIOLOGY Radiology Studies Ordered: Category Date Time Status HEAD CT WITHOUT CONTRAST [CT] Stat CT Scan 11/01/18 19:00 Completed BRAIN MRI W/O CONTRAST [MRI] Stat MRI 11/01/18 20:20 Taken - Medications Given in the ED: ED Medications Discontinued Medications Generic Name Dose Route Start Last Admin Trade Name Freq PRN Reason Stop Dose Admin Diazepam 2 mg 11/01/18 20:38 11/01/18 20:39 Valium - PO 11/01/18 20:39 2 mg ONCE ONE Administration Meclizine HCl 50 mg 11/01/18 19:28 11/01/18 19:45 Antivert - PO 11/01/18 19:29 50 mg ONCE ONE Administration Medical Decision Making - Medical Decision Making 11/01/[address] Wooten of Neurology at 20:08 in the ED. 11/02/18 00:21 pt received valium ,meclizine and symptoms improved ct scan head no acute infarct,no mass,no hydrocephalus,no shift BRAIN MRI small vessel ischemic disease,no infarct, questio of tiny aneurysm in ant communicating *DC/Admit/Observation/Transfer Diagnosis at time of Disposition: Ataxia, Vertigo, Horizontal nystagmus, Hyponatremia Hypertension Qualifiers: Hypertension type: unspecified Qualified Code(s): I10 - Essential (primary) hypertension Nausea & vomiting Qualifiers: Vomiting type: unspecified Vomiting Intractability: non-intractable Qualified Code(s): R11.2 - Nausea with vomiting, unspecified - Discharge Dispostion Condition at time of disposition: Stable Decision to Admit order: Yes - Referrals Referrals: Maribel Harrington [Primary Care Provider] - - Patient Instructions - Post Discharge Activity
--- NOTE | 2018-11-02 02:40 | HP ---
CHIEF COMPLAINT: Elevated BP sent to ED by ENT physician HISTORY OF PRESENT ILLNESS: Pt is a 78 y/o lady with a significant past medical history of HTN, Vertigo, recurrent UTIs (hospitalized at [facility] in Aug), and GERD who presented to [facility] after visiting her ENT physician. Per pt, she was at her [employer] yesterday morning when she suddenly began to experience an unsteady gait, persistent nystagmus, nausea, vomiting and lightheadedness. Pt subsequently went to her ENT physician as she had an appointment at 3:10 pm that day. BP was markedly elevated in 200s systolic. Pt was subsequently sent to ED. Pt endorses that she has a long history of Vertigo and usually takes her Mecizine when she feels symptoms coming on. Pt endorses that yesterday she did not take her meclizine. Denies chest pain, shortness of breath, or loss of consciousness. Social Hx- Former Smoker, quit 40 years ago used to smoke 1 ppd. Social Drinker. ER course was notable for: (1) Systolic BP 179 in ED (2) Na+ 126 (3) MR Brain--> Questionable prominence at level of anterior communicating artery. Tiny aneurysm in this region not excluded. Allergies sulfamethoxazole [From Bactrim] Adverse Reaction (Intermediate, Verified 18:54) Nausea trimethoprim [From Bactrim] Adverse Reaction (Intermediate, Verified 11/01/18 18 :54) Nausea HOME MEDICATIONS: Home Medications Medication Instructions Recorded Cholecalciferol (Vitamin D3) 1,000 unit PO DAILY 10/31/16 [Vitamin D3 -] Furosemide [Lasix] 20 mg PO DAILY 10/31/16 Losartan Potassium 100 mg PO DAILY 10/31/16 Meclizine HCl 25 mg PO PRN 10/31/16 Metoprolol Succinate [Toprol XL -] 25 mg PO DAILY 10/31/16 Multivit-Min/Iron/Folic/Lutein 1 each PO DAILY 10/31/16 [Centrum Silver Women Tablet] Omeprazole 40 mg PO DAILY 10/31/16 Acetaminophen [Tylenol .Regular 650 mg PO Q6H PRN #0 tablet 11/02/16 Strength -] Vitamin C - 500 mg PO DAILY 11/01/18 REVIEW OF SYSTEMS CONSTITUTIONAL: Absent: fever, chills, diaphoresis, generalized weakness, malaise, loss of appetite, weight change HEENT: Absent: rhinorrhea, nasal congestion, throat pain, throat swelling, difficulty swallowing, mouth swelling, ear pain, eye pain, visual changes CARDIOVASCULAR: Absent: chest pain, syncope, palpitations, irregular heart rate, lightheadedness , peripheral edema RESPIRATORY: Absent: cough, shortness of breath, dyspnea with exertion, orthopnea, wheezing, stridor, hemoptysis GASTROINTESTINAL: Absent: abdominal pain, abdominal distension, nausea, vomiting, diarrhea, constipation, melena, hematochezia GENITOURINARY: Absent: dysuria, frequency, urgency, hesitancy, hematuria, flank pain, genital pain MUSCULOSKELETAL: Absent: myalgia, arthralgia, joint swelling, back pain, neck pain SKIN: Absent: rash, itching, pallor HEMATOLOGIC/IMMUNOLOGIC: Absent: easy bleeding, easy bruising, lymphadenopathy, frequent infections ENDOCRINE: Absent: unexplained weight gain, unexplained weight loss, heat intolerance, cold intolerance NEUROLOGIC: PRESENT dizziness, unsteady gait PSYCHIATRIC: Absent: anxiety, depression, suicidal or homicidal ideation, hallucinations. PHYSICAL EXAMINATION Vital Signs - 24 hr 11/01/18 11/01/18 16:51 18:55 Temperature 97.6 F Pulse Rate 58 L Respiratory 16 Rate Blood Pressure 179/69 H Blood Pressure 178/77 H [Left Arm] O2 Sat by Pulse 97 Oximetry (%) GENERAL:NAD HEAD: Atraumatic/Normocephalic EYES: Sclera clear EOMI EARS, NOSE, THROAT: MMM NECK: Normal range of motion, supple without lymphadenopathy, JVD, or masses. LUNGS:CTAB HEART: RRR Nl S1S2 ABDOMEN: Soft NDNT LOWER EXTREMITIES: No CCE NEUROLOGICAL: Cranial nerves II-XII intact. Normal speech. No facial droop. SILT. Motor strength 5/5 upper/lower extremities. PSYCHIATRIC: Cooperative. Good eye contact. Appropriate mood and affect. SKIN: Warm, dry, normal turgor, no rashes or lesions noted, normal capillary refill. Laboratory Results - last 24 hr 11/01/18 11/01/18 11/01/18 22:00 22:00 22:00 WBC 6.3 RBC 4.09 Hgb 13.1 Hct 38.4 MCV 93.7 MCH 31.9 MCHC 34.1 RDW 13.5 Plt Count 286 MPV 7.8 Absolute Neuts (auto) 5.1 Neutrophils % 82.3 Lymphocytes % 13.1 Monocytes % 3.9 Eosinophils % 0.1 Basophils % 0.6 Nucleated RBC % 0 Sodium 126 L Potassium 4.4 Chloride 93 L Carbon Dioxide 24 Anion Gap 9 BUN 15 Creatinine 0.6 Creat Clearance w eGFR 96.44 Random Glucose 120 H Calcium 9.3 Total Bilirubin 0.5 AST 20 ALT 17 Alkaline Phosphatase 117 Troponin I < 0.02 Total Protein 7.6 Albumin 3.7 ASSESSMENT/PLAN: Pt is a 78 y/o lady with a significant past medical history of HTN, Vertigo, recurrent UTIs (hospitalized at [facility] in Aug), and GERD who presented to [facility] after visiting her ENT physician. # Hypertensive Urgency -BP 200s systolic in ENT office. Repeat BP in ED 170's systolic. - Will need to reconcile medications in am. Pt uses [facility], [place], [place]. Placed on Cozaar 100. -Place on telemetry with neuro checks and seizure precautions. Want to r/o any brainstem ischemia. MRI of brain per [facility]--> Questionable prominence at level of anterior communicating artery. Tiny aneurysm in this region not excluded. MRI Read per [facility] Radiology staff---> No evidence of abnormal restricted diffusion in the brain to suggest acute or subacute infarction. Moderate degree of chronic supratentorial white matter microangiopathic ischemic changes, gliosis. -Follow up echo, carotid dopplers, B12/thiamine/ESR/CRP/TSH/Lipids/A1c -Continue home meclizine -Valium 2mg PO x1 for peripheral vertigo per neurology # Vertigo w/ Nystagmus -Will place pt on home Meclizine and monitor response. -MRI negative for any infarcts or significant pathology. Likely 2/2 BPPV. #Hyponatremia -Checking serum osmolality, urine sodium; BID BMP; followup serum Na. Careful not to overcorrect. #FEN No standing Fluids Monitor Electrolytes Low Sodium Diet #DVT ppx: Heparin SQTID #Dispo: Tele Visit type - Emergency Visit Emergency Visit: Yes ED Registration Date: 11/02/18 Care time: The patient presented to the Emergency Department on the above date and was hospitalized for further evaluation of their emergent condition. - New Patient This patient is new to me today: Yes Date on this admission: 11/02/18 - Critical Care Critical Care patient: No
[2018-11-02] MEDS ORDERED: MECLIZINE HCL 25 MG TABLET (FP) PO PRN (06:15)
[2018-11-02] MEDS ORDERED: HEPARIN NA (PORCINE) 5,000 UNITS/ML 1ML VIAL ONE (06:53)
[2018-11-02] MEDS: HEPARIN NA (PORCINE) 5,000 UNITS/ML 1ML VIAL SQ SCH ×2 (06:57→14:03)
[2018-11-02 08:05] LABS: BASO % 0.8 % (0-2.0); EOS % 1.8 % (0-4.5); HEMATOCRIT 36.4 % (32.4-45.2); HEMOGLOBIN 12.5 GM/dL (10.7-15.3); LYMPH % 24.8 % (8-40); MCHC 34.4 g/dl (32.0-36.0); MEAN CELL VOLUME 93.1 fl (80-96); MEAN PLT VOLUME 7.9 fl (7.5-11.1); MONO % 10.8 % (3.8-10.2); NEUT % 61.8 % (42.8-82.8); PLATELET COUNT 288 K/MM3 (134-434); RBC 3.91 M/mm3 (3.60-5.2); RDW 13.1 % (11.6-15.6); WHITE BLOOD COUNT 5.6 K/mm3 (4.0-10.0)
[2018-11-02 08:18] VITALS: BP 160/66; PULSE 62; TEMP 98.2
[2018-11-02 08:30] LABS: INR 0.97 (0.83-1.09); PROTHROMBIN TIME (PATIENT) 11.5 SEC (9.7-13.0)
[2018-11-02 08:33] LABS: ACTIVATED PTT 33.1 SECONDS (25.2-36.5)
[2018-11-02] MEDS ORDERED: PANTOPRAZOLE 40 MG TABLET (FP) ONE (08:44)
[2018-11-02] MEDS ORDERED: LOSARTAN POTASSIUM 50 MG TABLET (FP) ONE (08:45)
[2018-11-02 08:56] LABS: ALBUMIN 3.4 g/dl (3.4-5.0); ALK PHOS 104 U/L (45-117); ANION GAP 7 MMOL/L (8-16); BILIRUBIN,TOTAL 0.6 mg/dL (0.2-1); BLOOD UREA NITROGEN 14 mg/dL (7-18); CALCIUM 9.1 mg/dL (8.5-10.1); CHLORIDE 100 mmol/L (98-107); CO2 27 mmol/L (21-32); CREATININE 0.7 mg/dL (0.55-1.3); GLUCOSE,RANDOM 88 mg/dL (74-106); MAGNESIUM 1.9 mg/dL (1.8-2.4); PHOSPHOROUS 3.6 mg/dL (2.5-4.9); SGOT/AST 10 U/L (15-37); SGPT/ALT 12 U/L (13-61); SODIUM 134 mmol/L (136-145); TOT PROT 6.8 g/dl (6.4-8.2)
[2018-11-02 09:20] LABS: CHOLESTEROL 206 mg/dL (50-200); HDL CHOLESTEROL 97 mg/dL (40-60); TRIGLYCERIDES 41 mg/dL (0-150)
[2018-11-02 09:26] LABS: ERYTHROCYTE SEDIMENTATION RATE 30 mm/hr (0-30)
[2018-11-02] MEDS ORDERED: PANTOPRAZOLE 40 MG TABLET (FP) PO SCH (10:00)
[2018-11-02] MEDS ORDERED: LOSARTAN POTASSIUM 50 MG TABLET (FP) PO SCH (10:00)
[2018-11-02] MEDS ORDERED: metoPROLOL SUCCINATE 25 MG TAB.SR.24H (FP) PO SCH (10:00)
--- NOTE | 2018-11-02 10:21 | EKG ---
Test Reason : Blood Pressure : / mmHG Vent. Rate : 063 BPM Atrial Rate : 067 BPM P-R Int : 202 ms QRS Dur : 084 ms QT Int : 408 ms P-R-T Axes : 058 -28 023 degrees QTc Int : 417 ms NORMAL SINUS RHYTHM WITH SINUS ARRHYTHMIA MINIMAL VOLTAGE CRITERIA FOR LVH, MAY BE NORMAL VARIANT BORDERLINE ECG WHEN COMPARED WITH ECG OF 31-OCT-2016 15:09, PREMATURE SUPRAVENTRICULAR COMPLEXES ARE NO LONGER PRESENT Confirmed by BUZZ JENSEN, APOLONIA ([id number]) on 11/02/2018 10:21:18 AM Referred By: Confirmed By:APOLONIA GERBER MD
[2018-11-02 11:35] LABS: OSMOLALITY,SERUM 277 mosm/kg (278-305)
--- NOTE | 2018-11-02 13:35 | ECHO ---
Name: XOCHILT MOTT Exam:Adult Echocardiogram Study Date: 11/02/2018 11:14 AM Age: 78 yrs Reason For Study: HTN Height: 67 in Weight: 165 lb BSA: 1.9 m2 MMode/2D Measurements & Calculations IVSd: 0.76 cm Ao root diam: 2.5 cm LVIDd: 4.3 cm LA dimension: 3.3 cm LVIDs: 2.9 cm LVPWd: 0.75 cm EDV(Teich): 83.6 ml LVOT diam: 2.2 cm ESV(Teich): 32.8 ml Doppler Measurements & Calculations MV E max julian: 63.2 cm/sec Ao V2 max: 139.9 cm/sec MV A max julian: 71.1 cm/sec Ao max P.8 mmHg MV E/A: 0.89 Ao V2 mean: 109.1 cm/sec Ao mean P.1 mmHg Ao V2 VTI: 37.7 cm LATRELL(I,D): 1.7 cm2 LATRELL(V,D): 1.7 cm2 LV V1 max P.6 mmHg MR max julian: 274.0 cm/sec LV V1 mean P.84 mmHg MR max P.0 mmHg LV V1 max: 63.5 cm/sec LV V1 mean: 43.8 cm/sec LV V1 VTI: 17.1 cm SV(LVOT): 65.7 ml TR max julian: 201.9 cm/sec TR max P.5 mmHg Procedure A two-dimensional transthoracic echocardiogram with color flow and Doppler was performed. Left Ventricle The left ventricular size, thickness and function are normal. The left ventricle is not well visualiz ed. The left ventricular ejection fraction is normal. Left Ventricular Filling pattern is normal for age. Reg ional wall motion abnormalities cannot be excluded due to limited visualization. Right Ventricle The right ventricle is not well visualized. Atria Normal left and right atrial size and function. Mitral Valve There is mild mitral valve thickening. There is no mitral valve stenosis. There is trace to mild mitr al regurgitation. Tricuspid Valve There is mild tricuspid valve thickening. There is no tricuspid stenosis. There is mild tricuspid regurgitation. Right ventricular systolic pressure is normal. Aortic Valve The aortic valve is trileaflet. There is mild aortic valve thickening. There is mild aortic sclerosis .;. No hemodynamically significant valvular aortic stenosis. No aortic regurgitation is present. Pulmonic Valve The pulmonic valve is not well visualized. Great Vessels The aortic root is normal size. Pericardium/Pleura There is no pericardial effusion. Interpretation Summary The left ventricular size, thickness and function are normal There is mild aortic valve thickening. There is mild aortic sclerosis.; The aortic valve is trileaflet. The left ventricle is not well visualized. Regional wall motion abnormalities cannot be excluded due to limited visualization. There is trace to mild mitral regurgitation. There is mild tricuspid regurgitation. Right ventricular systolic pressure is normal. Left Ventricular Filling pattern is normal for age. MD Adolph Lara 11/02/2018 01:35 PM
--- NOTE | 2018-11-02 14:14 | PN ---
Teaching Attending Note Name of Resident: Dominique Donato ATTENDING PHYSICIAN STATEMENT I saw and evaluated the patient. I reviewed the resident's note and discussed the case with the resident. I agree with the resident's findings and plan as documented with exceptions below. SUBJECTIVE: Patient seen and examined, Denies any dizziness, gait instability, headache or concerns. Feels well. OBJECTIVE: Vital Signs Period Temp Pulse Resp BP Sys/Cadet Pulse Ox Last 24 Hr 97.6 F-98.2 F 58-62 16-18 139-179/66-77 97-100 Intake & Output 10/30/18 10/31/18 11/01/18 11/02/18 23:59 23:59 23:59 23:59 Weight 165 lb General: sitting in bed in no acute distress HEENT: EOMI, PERRL, no nystagmus noted Chest: CTAB, no rales or wheezing Abdomen;soft, NT, ND, positive bowel sounds Extremities: no edema Neuro: AAOx3, Power 5/5, facial symmetry, tongue midline, EOMI, PERRL, no nystagmus, sensation intact and symmetric to light touch, cranial nerves II-XII intact Home Medications Medication Instructions Recorded Cholecalciferol (Vitamin D3) 1,000 unit PO DAILY 10/31/16 [Vitamin D3 -] Furosemide [Lasix] 20 mg PO DAILY 10/31/16 Losartan Potassium 100 mg PO DAILY 10/31/16 Meclizine HCl 25 mg PO PRN 10/31/16 Metoprolol Succinate [Toprol XL -] 25 mg PO DAILY 10/31/16 Multivit-Min/Iron/Folic/Lutein 1 each PO DAILY 10/31/16 [Centrum Silver Women Tablet] Omeprazole 40 mg PO DAILY 10/31/16 Acetaminophen [Tylenol .Regular 650 mg PO Q6H PRN #0 tablet 11/02/16 Strength -] Vitamin C - 500 mg PO DAILY 11/01/18 Active Medications Heparin Sodium (Porcine) (Heparin -) 5,000 unit SQ TID [facility] Last Admin: 11/02/18 14:03 Dose: Not Given Losartan Potassium (Cozaar -) 100 mg PO DAILY [facility] Last Admin: 11/02/18 10:40 Dose: 100 mg Meclizine HCl (Antivert -) 25 mg PO Q6H PRN PRN Reason: VERTIGO Metoprolol Succinate (Toprol Xl -) 25 mg PO DAILY [facility] Last Admin: 11/02/18 10:40 Dose: 25 mg Pantoprazole Sodium (Protonix -) 40 mg PO DAILY [facility] Last Admin: 11/02/18 10:40 Dose: 40 mg Laboratory Results - last 24 hr 11/01/18 11/01/18 11/01/18 22:00 22:00 22:00 WBC 6.3 RBC 4.09 Hgb 13.1 Hct 38.4 MCV 93.7 MCH 31.9 MCHC 34.1 RDW 13.5 Plt Count 286 MPV 7.8 Absolute Neuts (auto) 5.1 Neutrophils % 82.3 Lymphocytes % 13.1 Monocytes % 3.9 Eosinophils % 0.1 Basophils % 0.6 Nucleated RBC % 0 ESR PT with INR INR PTT (Actin FS) Sodium 126 L Potassium 4.4 Chloride 93 L Carbon Dioxide 24 Anion Gap 9 BUN 15 Creatinine 0.6 Creat Clearance w eGFR 96.44 Random Glucose 120 H Hemoglobin A1c % Serum Osmolality Calcium 9.3 Phosphorus Magnesium Total Bilirubin 0.5 AST 20 ALT 17 Alkaline Phosphatase 117 Troponin I < 0.02 C-Reactive Protein Total Protein 7.6 Albumin 3.7 Triglycerides Cholesterol Total LDL Cholesterol HDL Cholesterol Vitamin B12 Serum Folate TSH 11/02/18 11/02/18 11/02/18 07:50 07:50 07:50 WBC 5.6 RBC 3.91 Hgb 12.5 Hct 36.4 MCV 93.1 MCH 32.0 MCHC 34.4 RDW 13.1 Plt Count 288 MPV 7.9 Absolute Neuts (auto) 3.4 Neutrophils % 61.8 D Lymphocytes % 24.8 D Monocytes % 10.8 H D Eosinophils % 1.8 D Basophils % 0.8 Nucleated RBC % 0 ESR 30 PT with INR 11.50 INR 0.97 PTT (Actin FS) 33.1 Sodium 134 L Potassium 4.0 Chloride 100 Carbon Dioxide 27 Anion Gap 7 L BUN 14 Creatinine 0.7 Creat Clearance w eGFR 80.72 Random Glucose 88 Hemoglobin A1c % Serum Osmolality 277 L Calcium 9.1 Phosphorus 3.6 Magnesium 1.9 Total Bilirubin 0.6 AST 10 L ALT 12 L Alkaline Phosphatase 104 Troponin I C-Reactive Protein 0.7 H Total Protein 6.8 Albumin 3.4 Triglycerides Cholesterol Total LDL Cholesterol HDL Cholesterol Vitamin B12 913 Serum Folate TSH 1.32 11/02/18 11/02/18 07:50 07:50 WBC RBC Hgb Hct MCV MCH MCHC RDW Plt Count MPV Absolute Neuts (auto) Neutrophils % Lymphocytes % Monocytes % Eosinophils % Basophils % Nucleated RBC % ESR PT with INR INR PTT (Actin FS) Sodium Potassium Chloride Carbon Dioxide Anion Gap BUN Creatinine Creat Clearance w eGFR Random Glucose Hemoglobin A1c % 5.6 Serum Osmolality Calcium Phosphorus Magnesium Total Bilirubin AST ALT Alkaline Phosphatase Troponin I C-Reactive Protein Total Protein Albumin Triglycerides 41 Cholesterol 206 H Total LDL Cholesterol 105 H HDL Cholesterol 97 H Vitamin B12 Serum Folate [address] brain/MRI brain/2D echo/Carotid duplex results reviewed ASSESSMENT AND PLAN: 78 yof with PMHx of HTN, BPPV, recurrent UTIs, admitted with vertigo/nystagmus/ dizziness and concerns for ataxia -Vertigo, suspect BPPV -HTN -Recurrent UTIs Plan: MRI brain neg Discussed with Dr. Wooten, resume home meds. Lipid panel noted, outpatient monitoring and follow up with PCP. BP improved. PT eval noted Dc home today with outpatient PCP and ENT follow up. Plan discussed with patient and nursing, all questions answered.
--- NOTE | 2018-11-02 14:40 | DS ---
Physical Exam: SUBJECTIVE: Patient seen and examined. She is feeling much better today. OBJECTIVE: Vital Signs Period Temp Pulse Resp BP Sys/Cadet Pulse Ox Last 24 Hr 97.6 F-98.2 F 58-62 16-18 139-179/66-77 97-100 PHYSICAL EXAM GENERAL: The patient is awake, alert, and fully oriented, in no acute distress. HEAD: Normal with no signs of trauma. EYES: Extraocular movements intact, conjunctiva clear. ENT: Oropharynx clear without exudates, moist mucous membranes. NECK: Trachea midline, supple. LUNGS: Breath sounds equal, clear to auscultation bilaterally, no wheezes, no crackles. HEART: Regular rate and rhythm, S1, S2 without murmur, rub or gallop. ABDOMEN: Soft, nontender, nondistended, normoactive bowel sounds. EXTREMITIES: 2+ pulses, warm, no edema. NEUROLOGICAL: Cranial nerves 2-12 intact, motor 4/5 in upper extremities, 4/5 in LLE and 5/5 in RLE, limited exam due to arthritis pain, sensation intact. Normal speech, gait not observed. PSYCH: Normal mood, normal affect. SKIN: Warm, dry, no rashes. LABS Laboratory Results - last 24 hr 11/01/18 11/01/18 11/01/18 22:00 22:00 22:00 WBC 6.3 RBC 4.09 Hgb 13.1 Hct 38.4 MCV 93.7 MCH 31.9 MCHC 34.1 RDW 13.5 Plt Count 286 MPV 7.8 Absolute Neuts (auto) 5.1 Neutrophils % 82.3 Lymphocytes % 13.1 Monocytes % 3.9 Eosinophils % 0.1 Basophils % 0.6 Nucleated RBC % 0 ESR PT with INR INR PTT (Actin FS) Sodium 126 L Potassium 4.4 Chloride 93 L Carbon Dioxide 24 Anion Gap 9 BUN 15 Creatinine 0.6 Creat Clearance w eGFR 96.44 Random Glucose 120 H Hemoglobin A1c % Serum Osmolality Calcium 9.3 Phosphorus Magnesium Total Bilirubin 0.5 AST 20 ALT 17 Alkaline Phosphatase 117 Troponin I < 0.02 C-Reactive Protein Total Protein 7.6 Albumin 3.7 Triglycerides Cholesterol Total LDL Cholesterol HDL Cholesterol Vitamin B12 Serum Folate TSH 11/02/18 11/02/18 11/02/18 07:50 07:50 07:50 WBC 5.6 RBC 3.91 Hgb 12.5 Hct 36.4 MCV 93.1 MCH 32.0 MCHC 34.4 RDW 13.1 Plt Count 288 MPV 7.9 Absolute Neuts (auto) 3.4 Neutrophils % 61.8 D Lymphocytes % 24.8 D Monocytes % 10.8 H D Eosinophils % 1.8 D Basophils % 0.8 Nucleated RBC % 0 ESR 30 PT with INR 11.50 INR 0.97 PTT (Actin FS) 33.1 Sodium 134 L Potassium 4.0 Chloride 100 Carbon Dioxide 27 Anion Gap 7 L BUN 14 Creatinine 0.7 Creat Clearance w eGFR 80.72 Random Glucose 88 Hemoglobin A1c % Serum Osmolality 277 L Calcium 9.1 Phosphorus 3.6 Magnesium 1.9 Total Bilirubin 0.6 AST 10 L ALT 12 L Alkaline Phosphatase 104 Troponin I C-Reactive Protein 0.7 H Total Protein 6.8 Albumin 3.4 Triglycerides Cholesterol Total LDL Cholesterol HDL Cholesterol Vitamin B12 913 Serum Folate TSH 1.32 11/02/18 11/02/18 07:50 07:50 WBC RBC Hgb Hct MCV MCH MCHC RDW Plt Count MPV Absolute Neuts (auto) Neutrophils % Lymphocytes % Monocytes % Eosinophils % Basophils % Nucleated RBC % ESR PT with INR INR PTT (Actin FS) Sodium Potassium Chloride Carbon Dioxide Anion Gap BUN Creatinine Creat Clearance w eGFR Random Glucose Hemoglobin A1c % 5.6 Serum Osmolality Calcium Phosphorus Magnesium Total Bilirubin AST ALT Alkaline Phosphatase Troponin I C-Reactive Protein Total Protein Albumin Triglycerides 41 Cholesterol 206 H Total LDL Cholesterol 105 H HDL Cholesterol 97 H Vitamin B12 Serum Folate 66 H TSH HOSPITAL COURSE: Pt is a 78 y/o lady with a significant past medical history of HTN, Vertigo, recurrent UTIs, and GERD who presented to [facility] after visiting her ENT physician. Per pt, she was at her [employer] yesterday morning when she suddenly began to experience an unsteady gait, persistent nystagmus, nausea, vomiting and lightheadedness. Pt subsequently went to her ENT physician as she had an appointment at 3:10 pm that day. BP was markedly elevated in 200s systolic. Pt was subsequently sent to ED. Pt endorses that she has a long history of Vertigo and usually takes her Mecizine when she feels symptoms coming on. Pt endorses that yesterday she did not take her meclizine. Denies chest pain, shortness of breath, or loss of consciousness. The patient was admitted for vertigo, r/o brainstem ischemia. We did CT head, MRI of the brain that didn't show acute stroke. The patient also had Carotid dupplex- negative for stenosis. The patient was seen by Neurology, admitted to telemetry, had neuro checks, monitoring. She clinically improved and was discharged home with recommendations to follow up with her primary care physician and Neurologist in week or two. We didn't change any of her medications that she was taking before coming to the hospital. Date of Admission:11/02/18 Date of Discharge: 11/02/18 Minutes to complete discharge: 35 Discharge Summary Reason For Visit: ATAXIA,HYPONATREMIA,VERTIGO Current Active Problems Ataxia (Acute) Horizontal nystagmus (Acute) Hypertension (Acute) Hyponatremia (Acute) Nausea and vomiting (Acute) Vertigo (Acute) Condition: Good - Instructions Diet, Activity, Other Instructions: You were admitted to the hospital for vertigo and to rule out stroke. We did cat scan and MRI of your brain that didn't show acute stroke.W did carotid dupplex that shows minimal changes but no stenosis that would contribute to blood flow to your brain. You were also consulted by neurology-Dr Wooten. MEDICATIONS: Please continue to take take Meclizine when you experience dizziness, vertigo symptoms. All other medications that you were taking before hospitalization. You were found to have elevated cholesterol level. Please continue to eat well balanced diet, full of vegetables, fruits, exercise at least 3 times a week and follow up with your primary care physician. REFERRALS: Please see your primary care physician in a week. We would like you to have lab work (BMP) checked in a week to follow your electrolytes. Please visit Neurologist in 1-2 weeks after the discharge from the hospital. Please use precautions when you experience vertigo, dizziness. If you have severe vertigo, unsteady gait, dizziness, chest pain, or worsening of any of your symptoms, call 911 or come back to Emergency Room as soon as possible. Referrals: Lenka Wooten MD [Staff Physician] - Disposition: HOME - Home Medications Comprehensive Discharge Medication List: Ambulatory Orders Cholecalciferol (Vitamin D3) [Vitamin D3 -] 1,000 unit PO DAILY 10/31/16 Furosemide [Lasix] 20 mg PO DAILY 10/31/16 Losartan Potassium 100 mg PO DAILY 10/31/16 Meclizine HCl 25 mg PO PRN 10/31/16 Metoprolol Succinate [Toprol XL -] 25 mg PO DAILY 10/31/16 Multivit-Min/Iron/Folic/Lutein [Centrum Silver Women Tablet] 1 each PO DAILY Omeprazole 40 mg PO DAILY 10/31/16 Vitamin C - 500 mg PO DAILY 11/01/18 Problem List - Problems (1) Ataxia Code(s): R27.0 - ATAXIA, UNSPECIFIED (2) Horizontal nystagmus Code(s): H55.09 - OTHER FORMS OF [place] (3) Hypertension Code(s): I10 - ESSENTIAL (PRIMARY) HYPERTENSION Qualifiers: Hypertension type: unspecified Qualified Code(s): I10 - Essential (primary ) hypertension (4) Hyponatremia Code(s): E87.1 - HYPO-OSMOLALITY AND HYPONATREMIA (5) Nausea and vomiting Code(s): R11.2 - NAUSEA WITH VOMITING, UNSPECIFIED Qualifiers: Vomiting type: unspecified Vomiting Intractability: non-intractable Qualified Code(s): R11.2 - Nausea with vomiting, unspecified (6) Vertigo Code(s): R42 - DIZZINESS AND GIDDINESS This patient is new to me today: Yes Date on this admission: 11/02/18 Emergency Visit: Yes ED Registration Date: 11/02/18 Care time: The patient presented to the Emergency Department on the above date and was hospitalized for further evaluation of their emergent condition. Critical Care patient: No - Discharge Referral Referred to [facility] No
== END 2018-11-02 15:01 | disposition home or self-care (01) | DRG 305 ==
LOC: JER 16:49 → JERBED 11-02 00:14
PROVIDERS: ADMIT Internal Medicine; ATTEND Hospitalist
DX: I16.0 Hypertensive urgency (principal); E87.1 Hypo-osmolality and hyponatremia; H81.10 Benign paroxysmal vertigo, unspecified ear; H55.09 Other forms of nystagmus; R11.2 Nausea with vomiting, unspecified; R27.0 Ataxia, unspecified; K21.9 Gastro-esophageal reflux disease without esophagitis
CPT/HCPCS: 36415; 70450-TC; 70551-TC; 80053; 80061; 82607; 82746; 83036; 83721; 83735; 83930; 84100; 84443; 84484; 85025; 85610; 85651; 85730; 86140; 93005; 93010; 93306-TC; 93880-TC; 97116-GP; 97161-GP; 99283-25; J1644